=== PATIENT | female | born 2005 | race Caucasian/White ===

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

== ENCOUNTER 2023-01-11 10:29 | Outpatient (CLI) | payer BC, OTHER ==
[2023-01-11 10:52] LABS: BASOPHILS # (AUTO) 0.1 10^3/uL (0.0-0.1); BASOPHILS % (AUTO) 0.9 %; EOSINOPHILS # (AUTO) 0.1 10^3/uL (0.0-0.7); EOSINOPHILS % (AUTO) 1.4 %; HGB - HEMOGLOBIN 13.2 g/dL (12.0-16.0); LYMPHOCYTES # (AUTO) 1.9 10^3/uL (1.5-3.5); LYMPHOCYTES % (AUTO) 33.7 %; MEAN CORPUSCULAR HEMOGLOBIN 27.5 pg (27.0-31.0); MEAN CORPUSCULAR HGB CONC 32.2 g/dL (32.0-36.0); MEAN CORPUSCULAR VOLUME 85.4 fL (81.0-99.0); MEAN PLATELET VOLUME 9.3 fL (7.9-10.8); MONOCYTES # (AUTO) 0.6 10^3/uL (0.0-1.0); MONOCYTES % (AUTO) 10.1 %; NEUTROPHILS # (AUTO) 3.1 10^3/uL (1.5-6.6); NEUTROPHILS % (AUTO) 53.7 %; PLT - PLATELET COUNT 246 10^3/uL (130-450); RED CELL DISTRIBUTION WIDTH 13.8 % (12.0-15.0); WHITE BLOOD COUNT 5.8 x10^3/uL (4.8-10.8)
[2023-01-11 11:23] LABS: THYROID STIMULATING HORMONE 0.97 uIU/mL (0.34-5.60)
== END 2023-01-11 10:30 | disposition home or self-care (01) ==
LOC: LAB 10:29
PROVIDERS: ATTEND Nurse Practitioner Obstetrics & Gynecology
DX: N92.1 Excessive and frequent menstruation with irregular cycle (principal)
CPT/HCPCS: 36415; 81241; 84439; 84443; 85025; 85245

== ENCOUNTER 2023-01-13 20:01 | Emergency (ER) | payer BC, OTHER ==
[2023-01-13 20:17] VITALS: BP 126/73; O2SAT 100
[2023-01-13 20:26] LABS: BILIRUBIN,URINE NEGATIVE (NEGATIVE); GLUCOSE, URINE (UA) NEGATIVE (NEGATIVE); KETONES,URINE (UA) TRACE mg/dL (NEGATIVE); LEUKOCYTE ESTERASE, URINE TRACE (NEGATIVE); NITRITE,URINE NEGATIVE (NEGATIVE); OCCULT BLOOD,URINE LARGE (NEGATIVE); PH,URINE 6.5 PH (5.0-7.5); PROTEIN,URINE >=300 mg/dL (NEGATIVE); UROBILINOGEN,URINE 1 (NORMAL) E.U./dL (NORMAL)
[2023-01-13 20:28] LABS: HCG UR QUAL NEGATIVE
[2023-01-13 20:34] LABS: CLARITY,URINE TURBID (CLEAR)
[2023-01-13 20:35] LABS: BACTERIA,URINE Few /HPF (None Seen); RBC,URINE TNTC /HPF (0-5); SQUAMOUS EPITHELIAL CELL,UR RARE Squamous (<= Few); WBC,URINE >25 /HPF (0-5)
[2023-01-13] MEDS ORDERED: GENTAMICIN 80 MG/2 ML VIAL IM STA (20:36)
--- NOTE | 2023-01-13 20:36 | ED Physician Documentation ---
History of Present Illness - Stated complaint Stated Complaint: FEMALE - Chief complaint Chief Complaint: Abd Pain - History obtained from History obtained from: Patient - Additonal information Additional information: 17-year-old woman, previously healthy, with allergy to penicillin and cephalosporins, presents with abdominal pain radiating to the back for the past 2 days with dysuria and hematuria. Patient states that she also has had dysuria since last week and believes that she has had a UTI this entire time that she has not treated. Denies fever. Review of Systems GI: reports: Abdominal Pain. 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 : None HEENT: None Psych: None Musculoskeletal: Rheumatoid arthritis, Other Derm: None - Past Surgical History Past Surgical History: No - Present Medications Home Medications: Ambulatory Orders Medication Instructions Recorded Confirmed FLUoxetine [PROzac] 10 mg PO DAILY 02/16/21 01/13/23 busPIRone [Buspar] 5 mg PO DAILY 02/16/21 01/13/23 traZODone [Desyrel] 50 mg PO DAILY 02/16/21 01/13/23 Ciprofloxacin HCl 1 tablet PO BID 7 Days #14 tablet 01/13/23 hydrOXYzine HCL [Hydroxyzine HCl] 25 mg PO Q8H PRN 01/13/23 01/13/23 - Allergies Allergies/Adverse Reactions: Allergies Allergy/AdvReac Type Severity Reaction Status Date / Time Cephalosporins Allergy Nausea Verified 01/13/23 20:09 Penicillins Allergy Unknown Verified 01/13/23 20:09 - Social History Does the pt smoke?: No Smoking Status: Never smoker Does the pt drink ETOH?: No Does the pt have substance abuse?: No - Immunizations Immunizations are current?: Yes - POLST Patient has POLST: No PD ED PE NORMAL - Vitals Vital signs reviewed: Yes - General General: Alert and oriented X 3, No acute distress, Well developed/nourished - HEENT HEENT: Atraumatic, PERRL, EOMI, Moist mucous membranes, Pharynx benign - Neck Neck: Supple, no meningeal sign - Cardiac Cardiac: RRR - Respiratory Respiratory: No respiratory distress, Clear bilaterally - Abdomen Abdomen: Non tender, Non distended, Other (suprapubic discomfort to palpation) Results - Vitals Vitals: Vital Signs - 24 hr 01/13/23 20:04 Temperature 37.1 C Heart Rate 79 Respiratory 18 Rate Blood Pressure 126/73 O2 Saturation 100 Oxygen O2 Source Room air - Labs Labs: Laboratory Tests 01/13/23 01/13/23 20:11 20:11 Urine Color RED/BLOODY Urine Clarity TURBID Urine pH 6.5 Ur Specific [place] 1.025 Urine Protein >=300 H Urine Glucose (UA) NEGATIVE Urine Ketones TRACE Urine Occult Blood LARGE H Urine Nitrite NEGATIVE Urine Bilirubin NEGATIVE Urine Urobilinogen 1 (NORMAL) Ur Leukocyte Esterase TRACE H Urine RBC TNTC H Urine WBC >25 H Ur Squamous Epith Cells RARE Squamous Urine Bacteria Few Ur Microscopic Review INDICATED Urine Culture Comments INDICATED Urine HCG, Qual NEGATIVE PD Medical Decision Making - ED course ED course: 17yF presents with 1 week of dysuria with 2 days of back pain and hematuria, found to have uti on labwork. low suspicion for renal stones considering no history of sharp intermittent pain c/w stones. patient is not per hcg urine test. due to cephalosporin allergy we will provide first dose of gentamicin here and rx for cipro. return precautions given. plan to f/u pcp. Departure - Departure Disposition: 01 Home, Self Care Clinical Impression: UTI (urinary tract infection) Condition: Stable Instructions: ED UTI Cystitis Female Prescriptions: Ciprofloxacin HCl 1 tablet PO BID 7 Days #14 tablet Comments: You were seen in the emergency department for Urinary tract infection. Antibiotics were sent electronically to [facility] in [place]. If you do not have improvement in 48 hours then he should return. Please also return if you have temperature higher than 100.4. Please follow-up with your primary care provider and return to the emergency department if you have any new or worsening symptoms or other concerns. Forms: PCP List
--- OUTSIDE RECORDS SUMMARY | 2023-01-13 20:43 | EXTERNAL MEDICAL SUMMARY RPT | Continuity of Care Document ---
Author Name Unknown Address [address] [place] [address] Phone Organization [facility] Address [address] [place] [address] Phone Care Team Providers Care Mobile Patrol Officer Name Role Phone Unavailable Unavailable Unavailable Marty, Provider Unavailable Unavailable Medications date description facility 2023-01-11 00:00 buspirone [facility] 2023-01-13 00:00 buspirone [facility] 2023-01-11 00:00 hydroxyzine pamoate [facility] 2023-01-13 00:00 hydroxyzine pamoate [facility] 2023-01-11 00:00 hydroxyzine pamoate [facility] 2023-01-13 00:00 hydroxyzine pamoate [facility] 2023-01-11 00:00 trazodone [facility] 2023-01-13 00:00 trazodone [facility] 2023-01-11 00:00 buspirone [facility] 2023-01-13 00:00 buspirone [facility] 2023-01-11 00:00 fluoxetine [facility] 2023-01-13 00:00 fluoxetine [facility] 2023-01-11 00:00 fluoxetine [facility] 2023-01-13 00:00 fluoxetine [facility] 2023-01-11 00:00 fluoxetine [facility] 2023-01-13 00:00 fluoxetine [facility] [place] 2023-01-11 00:00 trazodone [facility] [place] 2023-01-13 00:00 trazodone [facility] [place] 2023-01-11 00:00 buspirone [facility] [place] 2023-01-13 00:00 buspirone [facility] [place] 2023-01-11 00:00 hydroxyzine pamoate [facility] [place] 2023-01-13 00:00 hydroxyzine pamoate [facility] [place] 2023-01-11 00:00 trazodone [facility] [place] 2023-01-13 00:00 trazodone [facility] [place] 2023-01-11 00:00 fluoxetine [facility] [place] 2023-01-13 00:00 fluoxetine [facility] [place] 2023-01-11 00:00 trazodone [facility] [place] 2023-01-13 00:00 trazodone [facility] [place] 2023-01-11 00:00 buspirone [facility] [place] 2023-01-13 00:00 buspirone [facility] [place] 2023-01-11 00:00 hydroxyzine pamoate [facility] [place] 2023-01-13 00:00 hydroxyzine pamoate [facility] [place] Results/Labs test date facility value unit notes
[2023-01-13] MEDS ORDERED: GENTAMICIN IV ONE (20:56)
[2023-01-13] MEDS ORDERED: SODIUM CHLORIDE 0.9% IV ONE (20:56)
[2023-01-13] MEDS ORDERED: GENTAMICIN 80 MG/2 ML VIAL ONE (21:15)
== END 2023-01-13 22:14 | disposition home or self-care (01) ==
LOC: ED 20:01
DX: N39.0 Urinary tract infection, site not specified (principal)
CPT/HCPCS: 81001; 81025; 87077; 87086; 87181; 96365; 99283; 99284; J1580; 81003

== ENCOUNTER 2023-02-15 18:21 | Emergency (ER) | payer BC, OTHER ==
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
[2023-02-15] MEDS ORDERED: ONDANSETRON ODT 4 MG TABLET TL STA (21:26)
--- NOTE | 2023-02-15 21:33 | ED Physician Documentation ---
History of Present Illness - Stated complaint Stated Complaint: HEAD PX - Chief complaint Chief Complaint: General - History obtained from History obtained from: Patient - History of Present Illness Timing: Today Pain level max: 0 Pain level now: 0 - Additonal information Additional information: Patient is a 17-year-old female who presents to the emergency department after several head injuries over the past few days. The first she was on concrete running backwards when she tripped fell hit her head and had a loss of consciousness, unknown amount of time. Has had persistent nausea since that time. Nothing seems to make it better or worse. She then had an object fall off of the wall and strike her on the head yesterday. Today she was accidentally struck in the head with a piece of wood. Has had continued nausea. Review of Systems Constitutional: denies: Fever, Chills GI: reports: Nausea. denies: Vomiting, Diarrhea Musculoskeletal: denies: Neck pain, Back pain Neurologic: reports: LOC. 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 : None HEENT: None Psych: Depression, Anxiety, Post traumatic stress disorder Musculoskeletal: Rheumatoid arthritis, Other Derm: None - Past Surgical History Past Surgical History: No - Present Medications Home Medications: Ambulatory Orders Medication Instructions Recorded Confirmed FLUoxetine [PROzac] 10 mg PO DAILY 02/16/21 02/15/23 busPIRone [Buspar] 5 mg PO DAILY 02/16/21 02/15/23 traZODone [Desyrel] 50 mg PO DAILY 02/16/21 02/15/23 hydrOXYzine HCL [Hydroxyzine HCl] 25 mg PO Q8H PRN 01/13/23 02/15/23 Drospirenone/Estetrol [Nextstellis 1 each PO DAILY 02/15/23 02/15/23 3-14.2 mg Tablet] Ondansetron Odt [Zofran] 4 mg TL Q6H PRN #10 tablet 02/15/23 - Allergies Allergies/Adverse Reactions: Allergies Allergy/AdvReac Type Severity Reaction Status Date / Time Cephalosporins Allergy Nausea Verified 01/13/23 20:09 Penicillins Allergy Unknown Verified 01/13/23 20:09 - Social History Does the pt smoke?: No Smoking Status: Never smoker Does the pt drink ETOH?: No Does the pt have substance abuse?: No - Immunizations Immunizations are current?: Yes - POLST Patient has POLST: No PD ED PE NORMAL - Vitals Vital signs reviewed: Yes - General General: Alert and oriented X 3, No acute distress, Well developed/nourished - HEENT HEENT: Atraumatic, PERRL, EOMI, Ears normal, Moist mucous membranes, Pharynx benign - Neck Neck: Supple, no meningeal sign, No bony TTP - Cardiac Cardiac: RRR, Strong equal pulses - Respiratory Respiratory: No respiratory distress, Clear bilaterally - Abdomen Abdomen: Soft, Non tender, Non distended - Back Back: No spinal TTP - Derm Derm: Warm and dry - Extremities Extremities: No edema, No calf tenderness / cord - Neuro Neuro: Alert and oriented X 3, general counsel 2-12 intact, No motor deficit, No sensory deficit, Normal speech Eye Opening: Spontaneous Motor: Obeys Commands Verbal: Oriented GCS Score: 15 - Psych Psych: Normal mood, Normal affect Results - Vitals Vitals: Vital Signs - 24 hr 02/15/23 02/15/23 18:40 21:55 Temperature 36.1 C L Heart Rate 79 74 Respiratory 18 18 Rate Blood Pressure 114/70 111/74 O2 Saturation 99 98 Oxygen O2 Source Room air - Rads (name of study) Head CT Relevant Findings:: Final report received, See rad report PD Medical Decision Making - ED course Complexity details: reviewed results, re-evaluated patient, considered differential, d/w patient, d/w family ED course: 17-year-old female presents to the emergency department after multiple head injuries including loss of consciousness a few days ago, continued nausea. Nausea improved with Zofran here. Head CT performed, no acute abnormalities. No skull fractures or hemorrhage. Head injury instructions given at bedside. We will treat as mild concussion. Patient counseled regarding signs and symptoms for which I believe and urgent re-evaluation would be necessary. Patient with good understanding of and agreement to plan and is comfortable going home at this time This document was made in part using voice recognition software. While efforts are made to proofread this document, sound alike and grammatical errors may occur. Departure - Departure Disposition: 01 Home, Self Care Clinical Impression: Closed head injury Qualifiers: Encounter type: initial encounter Qualified Code(s): S09.90XA - Unspecified injury of head, initial encounter Condition: Good Instructions: ED Head Injury Closed Follow-Up: Your,doctor in 1 week [Other] Prescriptions: Ondansetron Odt [Zofran] 4 mg TL Q6H PRN #10 tablet PRN Reason: Nausea / Vomiting Comments: Your head CT does not show any acute abnormalities today. Please follow-up with your doctor in 1 week for repeat evaluation. We will keep you off of work for the next 2 days. Avoid prolonged screen time, flashing lights or any activities that cause your head to hurt. We have sent a prescription for Zofran to [facility] for you. You can use Motrin or Tylenol as needed for pain. Please return if you worsen. You can sleep, you do not need to be woken up. PROCEDURE: HEAD WO INDICATIONS: multiple head injuries, nausea TECHNIQUE: Noncontrast 4.5 mm thick angled axial sections acquired from the foramen magnum to the vertex. For radiation dose reduction, the following was used: automated exposure control, adjustment of mA and/or kV according to patient size. COMPARISON: None. FINDINGS: Image quality: Excellent. CSF spaces: Basal cisterns are patent. No extra-axial fluid collections. Ventricles are normal in size and shape. Brain: No midline shift. No intracranial masses or hemorrhage. Fields-white matter interface is normal. Skull and face: Calvarium and visualized facial bones are intact, without suspicious lesions. Sinuses: Visualized sinuses and mastoids are clear. IMPRESSION: No acute intracranial pathology. No acute skull fracture. Forms: PCP List Discharge Date/Time: 02/15/23 21:55
[2023-02-15 22:02] VITALS: BP 111/74; O2SAT 98
== END 2023-02-15 21:55 | disposition home or self-care (01) ==
LOC: ED 18:21
DX: S06.9X9A Unspecified intracranial injury with loss of consciousness of unspecified duration, initial encounter (principal); W01.198A Fall on same level from slipping, tripping and stumbling with subsequent striking against other object, initial encounter; W20.8XXA Other cause of strike by thrown, projected or falling object, initial encounter; Y93.02 Activity, running; Y92.89 Other specified places as the place of occurrence of the external cause
CPT/HCPCS: 70450; 99283; 99284; Q0162

== ENCOUNTER 2023-07-14 11:00 | Emergency (ER) | payer BC, OTHER ==
[2023-07-14 11:30] VITALS: BP 112/75; O2SAT 100
[2023-07-14 12:25] LABS: B. PARAPERTUSSIS- RESP PCR PAN NOT DETECTED; B. PERTUSSIS- RESP PCR PANEL NOT DETECTED; C. PNEUMONIAE- RESP PCR PANEL NOT DETECTED; CORONAVIRUS 229E-RESP PCR NOT DETECTED; CORONAVIRUS HKU1-RESP PCR DETECTED; CORONAVIRUS NL63-RESP PCR NOT DETECTED; CORONAVIRUS OC43-RESP PCR NOT DETECTED; HUMAN METAPNEUMOVIRUS NOT DETECTED; INFLUENZA A- RESP PCR PANEL NOT DETECTED; INFLUENZA B - RESP PCR PANEL NOT DETECTED; PARAINFLUENZA VIRUS 1 NOT DETECTED; PARAINFLUENZA VIRUS 2 NOT DETECTED; PARAINFLUENZA VIRUS 3 NOT DETECTED; PARAINFLUENZA VIRUS 4 NOT DETECTED; RHINOVIRUS/ENTEROVIRUS NOT DETECTED; RSV- RESP PCR PANEL NOT DETECTED; SARS-CoV-2 -RESP PCR PANEL NOT DETECTED
[2023-07-14 12:26] LABS: M. PNEUMONIAE- RESP PCR PANEL NOT DETECTED
--- NOTE | 2023-07-14 12:31 | ED Physician Documentation ---
History of Present Illness - Stated complaint Stated Complaint: FACIAL PAIN - Chief complaint Chief Complaint: Heent - History obtained from History obtained from: Patient - History of Present Illness Timing: How many weeks ago (3) Pain level max: 3 Pain level now: 3 - Additonal information Additional information: Patient is a 18-year-old female who presents to the emergency department complaint of cough and nasal congestion for the past 3 weeks. 3 days ago started having forehead pain, bilateral frontal sinus and maxillary sinus pain. 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 Started having fevers again last night. 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 : None HEENT: None Psych: Depression, Anxiety, Post traumatic stress disorder Musculoskeletal: Rheumatoid arthritis, Other Derm: None - Past Surgical History Past Surgical History: No - Present Medications Home Medications: Ambulatory Orders Medication Instructions Recorded Confirmed hydrOXYzine HCL [Hydroxyzine HCl] 25 mg PO Q8H PRN 01/13/23 07/14/23 Drospirenone/Estetrol [Nextstellis 1 each PO DAILY 02/15/23 07/14/23 3-14.2 mg Tablet] Cetirizine HCl/Pseudoephedrine 1 tab PO BID PRN #20 tab 07/14/23 [Zyrtec-D ER 5 mg-120 mg Tablet] Doxycycline Monohydrate 100 mg PO BID #20 cap 07/14/23 - Allergies Allergies/Adverse Reactions: Allergies Allergy/AdvReac Type Severity Reaction Status Date / Time Cephalosporins Allergy Nausea Verified 07/14/23 11:26 Penicillins Allergy Unknown Verified 07/14/23 11:26 - Social History Does the pt smoke?: No Smoking Status: Never smoker Does the pt drink ETOH?: No Does the pt have substance abuse?: No - Immunizations Immunizations are current?: Yes - POLST Patient has POLST: No PD ED PE NORMAL - Vitals Vital signs reviewed: Yes - General General: Alert and oriented X 3, No acute distress - HEENT HEENT: PERRL, Ears normal, Moist mucous membranes, Pharynx benign, Other (TTP over the frontal sinsus and maxillary sinuses. ) - Neck Neck: Supple, no meningeal sign - Cardiac Cardiac: RRR, Strong equal pulses - Respiratory Respiratory: No respiratory distress, Clear bilaterally - Abdomen Abdomen: Soft, Non tender, Non distended - Derm Derm: Warm and dry - Neuro Neuro: Alert and oriented X 3 - Psych Psych: Normal mood, Normal affect Results - Vitals Vitals: Vital Signs - 24 hr 07/14/23 11:22 Temperature 37.2 C Heart Rate 115 H Respiratory 16 Rate Blood Pressure 112/75 O2 Saturation 100 Oxygen O2 Source Room air - Labs Labs: Laboratory Tests 07/14/23 11:30 Nasal Adenovirus (PCR) NOT DETECTED Nasal B. parapertussis DNA (PCR) NOT DETECTED Nasal Coronavir 229E PCR NOT DETECTED Nasal Coronavir HKU1 PCR DETECTED A Nasal Coronavir NL63 PCR NOT DETECTED Nasal Coronavir OC43 PCR NOT DETECTED Nasal Enterovir/Rhinovir PCR NOT DETECTED Nasal Influenza B PCR NOT DETECTED Nasal Influenza A PCR NOT DETECTED Nasal Parainfluen 1 PCR NOT DETECTED Nasal Parainfluen 2 PCR NOT DETECTED Nasal Parainfluen 3 PCR NOT DETECTED Nasal Parainfluen 4 PCR NOT DETECTED Nasal RSV (PCR) NOT DETECTED Nasal B.pertussis DNA PCR NOT DETECTED Nasal C.pneumoniae (PCR) NOT DETECTED Adama Human Metapneumo PCR NOT DETECTED Nasal M.pneumoniae (PCR) NOT DETECTED Nasal SARS-CoV-2 (PCR) NOT DETECTED PD Medical Decision Making - ED course Complexity details: reviewed results, re-evaluated patient, considered differential, d/w patient ED course: Patient with coronavirus H KU 1 looks to be complicated by an acute sinus infection. Will place on antibiotics and decongestants for home. Patient is well-appearing, nontoxic. No vomiting. Denies any positive . No evidence of sepsis. Patient counseled regarding signs and symptoms for which I believe and urgent re-evaluation would be necessary. Patient with good understanding of and agreement to plan and is comfortable going home at this time This document was made in part using voice recognition software. While efforts are made to proofread this document, sound alike and grammatical errors may occur. Departure - Departure Disposition: 01 Home, Self Care Clinical Impression: Acute sinus infection Qualifiers: Sinusitis location: pansinusitis Recurrence: non-recurrent Qualified Code(s): J01.40 - Acute pansinusitis, unspecified Condition: Good Instructions: ED Sinusitis Abx Tx Follow-Up: your,doctor in 1 week if not better [Other] - Within 1 week Prescriptions: Doxycycline Monohydrate 100 mg PO BID #20 cap Cetirizine HCl/Pseudoephedrine [Zyrtec-D ER 5 mg-120 mg Tablet] 1 tab PO BID PRN #20 tab PRN Reason: nasal congestion Comments: Your prescriptions were sent to [facility] in [place]. Please take all antibiotics until gone. Please follow-up with your doctor for further care. You appear to have a sinus infection on top of the non-COVID coronavirus that you are positive for. Please drink plenty of fluids. Forms: PCP List, Activity restrictions Discharge Date/Time: 07/14/23 12:40
== END 2023-07-14 12:40 | disposition home or self-care (01) ==
LOC: ED 11:00
DX: J01.40 Acute pansinusitis, unspecified (principal); Z11.52 Encounter for screening for COVID-19
CPT/HCPCS: 87633; 99283

== ENCOUNTER 2023-10-04 16:08 | Emergency (ER) | payer BC, OTHER ==
[2023-10-04 16:31] VITALS: BP 119/71; O2SAT 100
--- NOTE | 2023-10-04 16:58 | XRAY Report ---
PROCEDURE: Knee 4+V RT INDICATIONS: knee pain x6 weeks. TECHNIQUE: 4 views of the knee(s) were acquired. COMPARISON: None. FINDINGS: Bones: No fractures or dislocations. No suspicious bony lesions. Soft tissues: Small knee joint effusion. No suspicious soft tissue calcifications or masses. IMPRESSION: No acute bony abnormality. No significant degenerative changes. Reviewed by: Alex Bone MD on 10/04/2023 4:56 PM PDT Approved by: Alex Bone MD on 10/04/2023 4:56 PM PDT Station ID: [id number]
--- NOTE | 2023-10-04 18:41 | ED Physician Documentation ---
History of Present Illness - Stated complaint Stated Complaint: R KNEE PX - Chief complaint Chief Complaint: Ext Problem - History obtained from History obtained from: Patient - History of Present Illness Timing: Today Pain level max: 8 Pain level now: 5 - Additonal information Additional information: 18-year-old female presents to the emergency department the right knee pain. Ongoing for the past few weeks. She states it is just not getting better. 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 Has not taken anything for pain. No numbness or tingling. 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 : None HEENT: None Psych: Depression, Anxiety, Post traumatic stress disorder Musculoskeletal: Rheumatoid arthritis, Other Derm: None - Past Surgical History Past Surgical History: No - Present Medications Home Medications: Ambulatory Orders Medication Instructions Recorded Confirmed Drospirenone/Estetrol [Nextstellis 1 each PO DAILY 02/15/23 10/04/23 3-14.2 mg Tablet] Ibuprofen [Motrin] 800 mg PO Q8H PRN #30 tablet 10/04/23 - Allergies Allergies/Adverse Reactions: Allergies Allergy/AdvReac Type Severity Reaction Status Date / Time Cephalosporins Allergy Nausea Verified 10/04/23 16:17 diclofenac Allergy Hives Verified 10/04/23 16:17 Penicillins Allergy Unknown Verified 10/04/23 16:17 - Social History Does the pt smoke?: No Smoking Status: Never smoker Does the pt drink ETOH?: No Does the pt have substance abuse?: No - Immunizations Immunizations are current?: Yes - POLST Patient has POLST: No PD ED PE NORMAL - Vitals Vital signs reviewed: Yes - General General: Alert and oriented X 3, No acute distress - HEENT HEENT: Moist mucous membranes - Neck Neck: Supple, no meningeal sign - Derm Derm: Warm and dry - Extremities Extremities: Other - Neuro Neuro: Alert and oriented X 3 - Free text exam Free text exam: Right knee - There is tenderness along the medial joint line. Small joint effusion. Pain with meniscus testing but no click is felt. ACL, MCL, PCL, LCL are intact. Patella tracks normally. Neurovascular intact Results - Vitals Vitals: Vital Signs - 24 hr 10/04/23 16:17 Temperature 36.8 C Heart Rate 73 Respiratory 16 Rate Blood Pressure 119/71 O2 Saturation 100 Oxygen O2 Source Room air - Rads (name of study) R knee xray Relevant Findings:: Final report received, See rad report PD Medical Decision Making - ED course Complexity details: reviewed results, re-evaluated patient, considered differ ential, d/w patient, d/w family ED course: Right knee x-ray does not show any acute abnormalities other than a small joint effusion. She does have tenderness along the medial joint line, concerning for possible meniscus injury. She will try compressive brace at home and we will try anti-inflammatory medications. Recommend that she follow-up with orthopedics and/or her doctor for further care including potential MRI versus physical therapy. No evidence of infection. No evidence of fracture. Patient counseled regarding signs and symptoms for which I believe and urgent re- evaluation would be necessary. Patient with good understanding of and agreement to plan and is comfortable going home at this time This document was made in part using voice recognition software. While efforts are made to proofread this document, sound alike and grammatical errors may occur. Departure - Departure Disposition: 01 Home, Self Care Clinical Impression: Knee effusion, right Condition: Good Instructions: ED Meniscal Injury Knee Poss, ED Effusion Knee Follow-Up: Orthopedic Care [Provider Group] - Within 1 week Prescriptions: Ibuprofen [Motrin] 800 mg PO Q8H PRN #30 tablet PRN Reason: PAIN &/OR FEVER Comments: Your prescription was sent to [facility] in [place]. As we discussed it is likely that you have an injury to your meniscus which is the cartilage in the knee. I have given you the number to the orthopedic clinic for follow-up. You do have a small effusion on x-ray. This is a small amount of fluid in the knee. Please return if you worsen. You can try compressive sleeve as well. Forms: PCP List Discharge Date/Time: 10/04/23 18:57
== END 2023-10-04 18:57 | disposition home or self-care (01) ==
LOC: ED 16:08
DX: M25.461 Effusion, right knee (principal)
CPT/HCPCS: 99283; 99284

== ENCOUNTER 2023-10-17 16:12 | Outpatient (CLI) | payer BC, OTHER ==
--- NOTE | 2023-10-17 22:11 | XRAY Report ---
PROCEDURE: Knee 4+V RT INDICATIONS: RIGHT KNEE PAIN TECHNIQUE: 4 views of the knee(s) were acquired. COMPARISON: Right knee radiographs 10/04/2023. FINDINGS: Bones: No fractures or dislocations. No periosteal reaction. No suspicious bony lesions. Soft tissues: No knee joint effusion. No suspicious soft tissue calcifications or masses. IMPRESSION: No acute bony abnormality. MRI could be considered for further evaluation. Reviewed by: Hernan Curiel MD on 10/17/2023 10:10 PM PDT Approved by: Hernan Curiel MD on 10/17/2023 10:10 PM PDT Station ID: [id number]
== END 2023-10-17 16:13 | disposition home or self-care (01) ==
LOC: DI 16:12
PROVIDERS: ATTEND Physician Assistant Surgical
DX: M25.561 Pain in right knee (principal)

== ENCOUNTER 2023-10-26 16:45 | Outpatient (CLI) | payer BC, OTHER ==
--- NOTE | 2023-10-27 12:27 | MRI Report ---
PROCEDURE: Knee RT WO INDICATIONS: R KNEE MENISCUS DERANGEMENT TECHNIQUE: Noncontrast sagittal PD fast spin echo and T2 fast spin echo with fat saturation, sagittal 3-D gradie nt sequence with fat saturation; coronal T1 spin echo and PD fast spin echo with fat saturation, and axial PD fast spin echo with fat saturation through the knee. COMPARISON: Right knee radiograph dated 10/17/2023, 10/04/2023. FINDINGS: Image quality: Excellent. Menisci: The medial meniscus is intact. Subtle signal abnormality involving posterior horn of lateral meniscus with adjacent 3 mm cystic area concerning for subtle posterior horn lateral meniscal tear w ith adjacent perimeniscal cyst. The meniscal root ligaments appear intact. Cruciate ligaments: The anterior cruciate ligament is mildly thickened with intrasubstance T2 hyperi ntense signal. The posterior cruciate ligament is intact. Medial structures: The medial collateral ligament appears intact. Visualized portions of the pes ans erinus tendons appear normal. No abnormal bursal fluid. Lateral structures: The lateral collateral ligament, long and short heads of the biceps femoris tend on appear mildly thickened. The popliteus tendon appears normal. Iliotibial band appears normal. Anterior structures: The quadriceps and patellar tendons appear intact. Patellar alignment is alexander l. No femoral trochlear dysplasia or ventral trochlear prominence. No edema in the infrapatellar fa t pad. Bones and cartilage: No bone marrow contusions or fractures. The cartilage of the medial and latera l femorotibial compartments, as well as the patellofemoral compartment, appears normal in thickness. Joint space: There is small knee joint fluid. No Medrano's cyst. Normal appearing synovial plicae ar e incidentally noted. IMPRESSION: 1. Finding is concerning for very subtle oblique tear involving posterior horn of lateral meniscus ex tending to inferior articulating surface and tiny 3 mm adjacent perimeniscal cyst. No evidence of med ial meniscal tear. 2. Low-grade sprain/intrasubstance partial thickness tear involving anterior cruciate ligament. No AC L rupture. The PCL is intact. 3. Low-grade LCL sprain. Mild distal biceps femoris tendinosis. 4. No marrow edema. No fracture or dislocation. Articulating cartilage is normal in thickness. Small joint effusion, no loose bodies. Reviewed by: Jesse Hardy MD on 10/27/2023 12:26 PM PDT Approved by: Jesse Hardy MD on 10/27/2023 12:26 PM PDT Station ID: [id number]
== END 2023-10-26 16:46 | disposition home or self-care (01) ==
LOC: DI 16:45
PROVIDERS: ATTEND Physician Assistant Surgical
DX: S83.511A Sprain of anterior cruciate ligament of right knee, initial encounter (principal); S83.421A Sprain of lateral collateral ligament of right knee, initial encounter; M25.461 Effusion, right knee

== ENCOUNTER 2024-01-18 08:10 | Day surgery (SDC) | payer BC, OTHER ==
[~2024-01-18 08:10] MED LIST: ACETAMINOPHEN 1,000 MG/100 ML 1,000 MG/100 ML BAG IV ONE; ceFAZolin 2 GM VIAL ONE
[2024-01-18] MEDS: LACTATED RINGERS 1,000 ML IV ONE (08:13)
[2024-01-18] MEDS: CELECOXIB 100 MG CAPSULE PO ONE (08:23)
[2024-01-18] MEDS: GABAPENTIN 400 MG CAPSULE ONE (08:23)
[2024-01-18 08:58] LABS: HCG UR QUAL NEGATIVE
[2024-01-18] MEDS ORDERED: ATROPINE ABBOJECT 1 MG/10 ML SYRINGE IVP PRN (09:28)
[2024-01-18] MEDS ORDERED: ONDANSETRON 4 MG/2 ML VIAL IVP PRN (09:28)
[2024-01-18] MEDS ORDERED: NALOXONE 0.4 MG/ML VIAL IVP PRN (09:28)
[2024-01-18] MEDS ORDERED: MORPHINE 2 MG/ML CARPUJECT IVP PRN (09:28)
--- NOTE | 2024-01-18 09:31 | ANESTHESIA ---
Pre-Anesthesia VS, & Labs - Diagnosis right knee pain - Procedure right knee arthroscopy Height: 5 ft 4 in Weight (kg): 52 kg Body Mass Index: 19.6 BMI Classification: Normal - NPO >8 hours - Is Patient ?: No Home Medications and Allergies Home Medications: Ambulatory Orders Acetaminophen [Tylenol] 650 mg PO Q6H PRN 01/12/24 Loryna 1 tab PO DAILY 01/12/24 Active Medications Alprazolam (Alprazolam 0.25 Mg Tablet) 0.25 mg PO ONCE ONE Stop: 01/18/24 09:29 Atropine Sulfate (Atropine Abboject 1 Mg/10 Ml Syringe) 0.5 mg IVP Q5M PRN PRN Reason: Bradycardia Stop: 01/19/24 09:28 Fentanyl (Fentanyl 100 Mcg/2 Ml Vial) 25 - 50 mcg IVP Q5M PRN PRN Reason: BREAKTHROUGH PAIN (2nd Choice) Stop: 01/19/24 09:28 Hydromorphone HCl (Hydromorphone 0.5 Mg/0.5 Ml Syringe) 0.2 - 0.6 mg IVP Q5M PRN PRN Reason: PAIN (First Choice) Stop: 01/19/24 09:28 Lactated Ringer's (Lr) 1,000 mls @ 100 mls/hr IV .Q10H JOHN PAUL Stop: 01/18/24 19:59 Morphine Sulfate (Morphine 2 Mg/Ml Carpuject) 2 - 4 mg IVP Q5M PRN PRN Reason: PAIN (3rd Choice) Stop: 01/19/24 09:28 Naloxone HCl (Naloxone 0.4 Mg/Ml Vial) 0.1 mg IVP Q2M PRN PRN Reason: RESP RATE <8 Stop: 01/19/24 09:28 Ondansetron HCl (Ondansetron 4 Mg/2 Ml Vial) 4 mg IVP ONCE PRN PRN Reason: N/V (First Choice) Stop: 01/19/24 09:28 Acetaminophen [Tylenol] 650 mg PO Q6H PRN 01/12/24 Loryna 1 tab PO DAILY 01/12/24 Allergies/Adverse Reactions: Allergies Allergy/AdvReac Type Severity Reaction Status Date / Time Cephalosporins Allergy Nausea Verified 01/18/24 08:47 diclofenac Allergy Hives Verified 01/18/24 08:47 Penicillins Allergy Unknown Verified 01/18/24 08:47 Anes History & Medical History - Anesthetic History Family history of Anesthesia Complications: Denies Family history of Malignant Hyperthermia: Denies - Medical History Cardiovascular: reports: None Pulmonary: reports: None Gastrointestinal: reports: None Urinary: reports: None Neuro: reports: None Musculoskeletal: reports: Chronic back pain Endocrine/Autoimmune: reports: None Blood Disorders: reports: None Skin: reports: Rosacea Smoking Status: Current every day smoker (vapes daily) Psychosocial: reports: Depression, Anxiety, Other (PTSD) Exam General: Alert, Oriented x3, Cooperative, No acute distress Dental: WNL Mouth Openin Fingerbreadth Neck Mobility: Normal Mallampati classification: II Thyromental Distance: 4-6 cm Mental/Cognitive Status: Alert/Oriented X3, Normal for patient Plan Anesthesia Type: General Consent for Procedure(s) Verified and Reviewed: Yes Code Status: Attempt Resuscitation ASA classification: 2-Mild systemic disease Is this case an emergency?: No
[2024-01-18] MEDS ORDERED: ALPRAZolam 0.25 MG TABLET PO ONE (09:33)
[2024-01-18] MEDS: ALPRAZolam 0.25 MG TABLET PO ONE (09:35)
[2024-01-18] MEDS ORDERED: LACTATED RINGERS 1,000 ML IV SCH (10:00)
[2024-01-18] MEDS ORDERED: BUPIVACAINE 0.25% PF 30 ML VIAL ONE (10:04)
[2024-01-18] MEDS ORDERED: MIDAZOLAM 2 MG/2 ML VIAL ONE (10:08)
[2024-01-18] MEDS ORDERED: PROPOFOL 200 MG/20 ML VIAL IVP ONE ×2 (10:09→11:42)
[2024-01-18] MEDS ORDERED: fentaNYL 100 MCG/2 ML VIAL ONE ×2 (10:09→12:40)
[2024-01-18] MEDS ORDERED: ONDANSETRON 4 MG/2 ML VIAL ONE (11:20)
[2024-01-18] MEDS ORDERED: DEXAMETHASONE 4 MG/ML VIAL ONE (11:20)
[2024-01-18] MEDS: BUPIVACAINE 0.25% PF 30 ML VIAL SUBQ ONE ×2 (11:46)
[2024-01-18] MEDS: LACTATED RINGERS 600 ML IV ONE (12:23)
[2024-01-18] MEDS ORDERED: ACETAMINOPHEN 500 MG TABLET PO PRN (12:32)
[2024-01-18] MEDS ORDERED: ONDANSETRON ODT 4 MG TABLET TL PRN (12:32)
[2024-01-18] MEDS: fentaNYL 100 MCG/2 ML VIAL IVP PRN (12:42)
--- NOTE | 2024-01-18 12:48 | OPERATIVE REPORT ---
Operative Report - General Procedure Date: 01/18/24 Planned Procedure: RIGHT knee scope and potential meniscal debridement vs repair Pre-Op Diagnosis: RIGHT knee pain Procedure Performed: RIGHT knee scope and lateral plica debridement Post Op Diagnosis: Lateral Plica - Procedure Note Primary Surgeon: Bertha Secondary Surgeon: Shaun - Other Other Information/Narrative: Primary Surgeon: Castillo Stone MD Secondary Surgeon: Nicole Dunn Anesthesia: General EBL: 20 ml Tourniquet: 40 minutes @ 250 mmHg Implants: None Indication For Surgery: Latearl Knee Pain. The risks, benefits, and alternatives were discussed. Risks include pain, bleeding, infection, damage to nearby structures and cartilage, lack of symptom relief, need for further surgery, DVT, PE, stroke, and . Written consent was obtained. Examination Under Anesthesia: ROM equal to the contralateral side. Normal Kushal & pivot shift Stable to varus and valgus stressing at 0 & 30 degrees. Stable dial at 30 & 90 degrees. No mechanical sensations Diagnostic Arthroscopy: Loose bodies: None Synovium: No Synovitis Patella cartilage: Intact Trochlear cartilage: Intact Medial femoral condyle cartilage: intact Medial tibial plateau cartilage: intact Medial meniscus: root is intact without any other tear ACL: intact PCL: intact Lateral femoral condyle cartilage: intact Lateral tibial plateau cartilage: fissuring in the lateral tibial plateau. No full-thickness Cartilage loss. Lateral meniscus: Meniscus intact. Root intact. Procedure in Detail: The patient was met in the pre-operative hold area. Consent was verified and operative extremity was signed. The patient then met with anesthesia and was brought back to the operating room. The patient was placed supine on the operating table. A general anesthetic was administered. A well- padded tourniquet was placed on the thigh. The lower extremity was then prepped and draped in the usual sterile fashion. A timeout was performed per protocol. All were in agreement and we proceeded. The Esmarch was used to exsanguinate the limb and the tourniquet was elevated. An 11 blade scalpel was used to make an anterolateral arthroscopic portal. The arthroscope was introduced into the knee and the anteromedial portal was created under direct visualization using needle localization. A diagnostic arthroscopy was performed with the above-stated findings. There was significant plica on the lateral aspect of the knee that reached from the joint line up to the latera l patellar facet. This appeared to be rubbing across the lateral femoral condyle and there was a small amount of erythema. This was debrided back to the capsule. There was no further evidence of a plica on the lateral side. She also had a small piece of tissue coming off the PCL that look like it could impinge on the medial aspect of the knee. It was not related to the medial meniscus root. This was debrided back until we could see the PCL fibers. The wounds were irrigated. Wound was closed with 3-0 nylon. Local anesthetic was placed. A sterile dressing was applied. The patient was awakened and transferred to the recovery room in stable condition. Postoperative Plan: Same day discharge Weightbearing as tolerated Remove dressing in [address] bandaids Physical therapy to start after surgery Do not submerge wound until 4 weeks Follow up at 2 weeks for suture removal. Castillo Stone MD
[2024-01-18] MEDS: HYDROmorphone 1 MG/ML CARPUJECT ONE (12:53)
[2024-01-18] MEDS: HYDROmorphone 0.5 MG/0.5 ML SYRINGE IVP PRN (12:53)
[2024-01-18] MEDS ORDERED: oxyCODONE 5 MG TABLET ONE (13:20)
[2024-01-18] MEDS: oxyCODONE 5 MG TABLET PO PRN (13:21)
--- NOTE | 2024-01-18 15:45 | ANESTHESIA POST OP EVALUATION ---
Anesthesia Post Eval - Post Anesthesia Eval CV Function Including HR & BP: Stable Pain Control: Satisfactory Nausea & Vomiting: Negative Mental Status: Baseline Respiratory Status: Airway Patent Hydration Status: Satisfactory Anesthesia Complications: None
== END 2024-01-18 08:11 | disposition home or self-care (01) ==
LOC: SDS 08:10
PROVIDERS: ATTEND Orthopaedic Surgery
DX: M67.51 Plica syndrome, right knee (principal); M23.300 Other meniscus derangements, unspecified lateral meniscus, right knee; M23.8X1 Other internal derangements of right knee
CPT/HCPCS: 29877; 81025; A9270; J0131; J1170; J7120